=== PATIENT | male | born 1955 ===

== ENCOUNTER 2016-08-19 15:38 | Emergency (ER) ==
[2016-08-19] MEDS ORDERED: KETOROLAC 30 MG/ML VIAL (J1885) As Ordered ONE (16:23)
--- NOTE | 2016-08-19 17:30 | EDDOCDS ---
Physician Documentation [facility] Name: Donovan Perez Age: 61 yrs Sex: Male : 1955 Arrival Date: 08/19/2016 Time: 15:38 Bed PR Private MD: NO PRIMARY PHYSICIAN, . Disposition: 08/19/16 17:14 Discharged to Home/Self Care. Impression: Muscle spasm of back - right rhomboids. - Condition is Stable. - Discharge Instructions: Back Pain, Adult. - Prescriptions for Naprosyn 500 mg Oral Tablet - take 1 tablet by ORAL route 2 times per day take with food; 30 tablet. Robaxin 500 mg Oral Tablet - take 2 tablet by ORAL route every 6 hours As needed; 40 tablet. - Medication Reconciliation, Local Pharmacy Hours form. - Follow up: Private Physician; When: As needed; Reason: Recheck today's complaints, Continuance of care. Follow up: Emergency Department; When: As needed; Reason: Worsening of conditions. - Problem is an acute exacerbation. - Symptoms have improved. Historical: - Allergies: no known allergies; - Home Meds: 1. Proscar 5 mg Oral tab 1 tab once daily 2. trazodone 50 mg Oral tab 1 tab HS 3. losartan 25 mg oral tab 1 tab once daily 4. tamsulosin 0.4 mg oral cp24 1 cap once daily 5. atorvastatin 40 mg oral tab 1 tab once daily 6. Sertraline 150 mg daily 7. aspirin 81 mg Oral tab 1 tab once daily - PMHx: BPH; PTSD; HTN; Hypercholesterolemia; - PSHx: Cervical disc replacement; Tonsillectomy; Adenoidectomy; - Social history: Smoking status: Patient states former smoker of tobacco. No barriers to communication noted, The patient speaks fluent Cymro, Speaks appropriately for age. - Family history: Not pertinent. - : The pt / caregiver states he / she is not on anticoagulants. Home medication list is obtained from the patient. - Exposure Risk Screening:: None identified. Vital Signs: 08/19 15:40 BP 143 / 78; Pulse 88; Resp 18 S; Temp 97.7(O); Pulse Ox 95% on R/A; Weight 98.88 kg / gr2 217.99 lbs (R); Height 5 ft. 9 in. (175.26 cm) (R); Pain 8/10; 17:19 BP 154 / 83; Pulse 77; Resp 18; Temp 97.5(T); Pulse Ox 95% on R/A; Pain 0/10; nb2 15:40 Body Mass Index 32.19 (98.88 kg, 175.26 cm) gr2 MDM: 16:16 ketorolac 60 mg IM once ordered. ar2 16:16 Diazepam 5 mg IM once ordered. ar2 Administered Medications: 16:30 Drug: ketorolac 60 mg [ketorolac 30 mg/mL (1 mL) injection solution (2 mL)] Route: IM; jf3 Site: right gluteus; 16:32 Drug: Diazepam 5 mg [diazepam 5 mg/mL injection syringe (1 mL)] Route: IM; Site: left jf3 gluteus; Signatures: Winifred White,RN RN ck1 Chelsea Gutiérrez RN RN jo3 Finesse Sheikh PA-C PATavares ar2 Alirio Zaragoza RN jf3 MTDD
--- NOTE | 2016-08-19 17:30 | EDDOCDS ---
Nurse's Notes [facility] Name: Donovan Perez Age: 61 yrs Sex: Male : 1955 Arrival Date: 08/19/2016 Time: 15:38 Bed PR Private MD: NO PRIMARY PHYSICIAN, . Diagnosis: Muscle spasm of back-right rhomboids Presentation: 08/19 15:43 Presenting complaint: Patient states: Pt has chronic back pain and is up in [place] visiting jo3 family at [facility]. Pain is in right between shoulder blades. Acute neurological deficits are not present. Mechanism of Injury: No Mechanism of Injury. Adult Sepsis Screening: The patient does not have new or worsening altered mentation. Patient's respiratory rate is less than 22. Systolic blood pressure is greater than 100. Patient has a qSOFA score of 0- Negative Sepsis Screen. Suicide/Homicide risk assessment- the patient denies having any suicidal and/or homicidal ideations and does not present with any other emotional, behavioral or mental health complaints. Status: Patient is not a electric refrigerator servicer or dependent. Transition of care: patient was not received from another setting of care. 15:43 Acuity: ZANDRA Level 4 jo3 15:43 Method Of Arrival: Walkin/Carried/Asstd jo3 Triage Assessment: 15:49 General: Appears in no apparent distress, comfortable, Behavior is appropriate for age, jo3 cooperative, pleasant. Pain: Pain currently is 8 out of 10 on a pain scale. At worst was 10 out of 10 on a pain scale. HIV screening NA for this visit Offered previously. Neurological: Level of Consciousness is awake, alert, Oriented to person, place, time. Respiratory: Airway is patent Respiratory effort is even, unlabored. Derm: Skin is pink, warm & dry. Historical: - Allergies: no known allergies; - Home Meds: 1. Proscar 5 mg Oral tab 1 tab once daily 2. trazodone 50 mg Oral tab 1 tab HS 3. losartan 25 mg oral tab 1 tab once daily 4. tamsulosin 0.4 mg oral cp24 1 cap once daily 5. atorvastatin 40 mg oral tab 1 tab once daily 6. Sertraline 150 mg daily 7. aspirin 81 mg Oral tab 1 tab once daily - PMHx: BPH; PTSD; HTN; Hypercholesterolemia; - PSHx: Cervical disc replacement; Tonsillectomy; Adenoidectomy; - Social history: Smoking status: Patient states former smoker of tobacco. No barriers to communication noted, The patient speaks fluent Kenyan, Speaks appropriately for age. - Family history: Not pertinent. - : The pt / caregiver states he / she is not on anticoagulants. Home medication list is obtained from the patient. - Exposure Risk Screening:: None identified. Screenin:28 Screening information is obtained from the patient. Fall risk: No risks identified. ck1 Assistance ADL's: requires no assistance with activities of daily living. Abuse/DV Screen: The patient / caregiver reports he/she is: not in a situation that causes fear, pain or injury. Nutritional screening: No deficits noted. Advance Directives: Currently, there is no health care proxy. home support is adequate. Assessment: 17:29 General: Appears in no apparent distress, comfortable, Behavior is appropriate for age, ck1 cooperative. Pain: Location: back Pain currently is 1 out of 10 on a pain scale. Neurological: Level of Consciousness is awake, alert, obeys commands, Oriented to person, place, time. Derm: Skin is intact, is healthy with good turgor, Skin is pink, warm & dry. Musculoskeletal: Circulation, motion, and sensation intact Range of motion intact in all extremities. Vital Signs: 15:40 BP 143 / 78; Pulse 88; Resp 18 S; Temp 97.7(O); Pulse Ox 95% on R/A; Weight 98.88 kg gr2 (R); Height 5 ft. 9 in. (175.26 cm) (R); Pain 8/10; 17:19 BP 154 / 83; Pulse 77; Resp 18; Temp 97.5(T); Pulse Ox 95% on R/A; Pain 0/10; nb2 15:40 Body Mass Index 32.19 (98.88 kg, 175.26 cm) gr2 Vitals: 15:40 Log In Time: August 19, 2016 at 15:40. gr2 ED Course: 15:39 Patient visited by Brandon Mark. gr2 15:39 NO PRIMARY PHYSICIAN, . is Private Physician. gr2 15:39 Patient moved to Waiting gr2 15:42 Patient visited by Brandon Mark. gr2 15:42 Patient moved to Pre RCE gr2 15:45 Triage Initiated jo3 15:50 Patient visited by Chelsea Gutiérrez RN. jo3 15:50 Patient moved to Triage 2 jo3 16:05 Finesse Sheikh [facility] ar2 16:06 Carl Leiva MD is Attending Physician. ar2 16:06 Patient visited by Finesse Sheikh PA-C. ar2 16:33 Patient moved to PR1 / 25 jf3 16:39 Patient visited by Winifred White RN. ck1 17:19 Patient visited by Cathy Fam. nb2 17:29 The patient / caregiver is instructed regarding the plan of care and ED course. ck1 17:29 No IV's were initiated during this patient's visit. No procedures done that require ck1 assistance. Administered Medications: 16:30 Drug: ketorolac 60 mg [ketorolac 30 mg/mL (1 mL) injection solution (2 mL)] Route: IM; jf3 Site: right gluteus; 16:32 Drug: Diazepam 5 mg [diazepam 5 mg/mL injection syringe (1 mL)] Route: IM; Site: left jf3 gluteus; Order Results: There are currently no results for this order. Outcome: 17:14 Discharge ordered by Provider. ar2 17:28 Discharge Assessment: Patient awake, alert and oriented x 3. No cognitive and/or ck1 functional deficits noted. Patient verbalized understanding of disposition instructions. 17:28 Discharge Assessment: Patient awake, alert and oriented x 3. No cognitive and/or ck1 functional deficits noted. Patient verbalized understanding of disposition instructions. patient administered narcotics - yes. Pt provided with safe discharge. The following High Risk Discharge criteria are identified: None. Discharged to home ambulatory. Condition: stable. Discharge instructions given to patient, Instructed on discharge instructions, follow up and referral plans. medication usage, Demonstrated understanding of instructions, medications, Pt was receptive of discharge instructions/ teaching. Prescriptions given X 2. No special radiology studies were completed. Property :Personal belongings accompany Pt. 17:29 Patient left the ED. ck1 Signatures: Winifred White,RAFAL RN ck1 Chelsea Gutiérrez RN RN jo3 Finesse Sheikh PA-C PA-C ar2 Brandon Mark 2 Alirio Zaragoza RN RN jf3 Baart, Cathy nb2 MTDD
--- NOTE | 2016-08-21 18:30 | EDDOCDS ---
Nurse's Notes [facility] Name: Donovan Perez Age: 61 yrs Sex: Male : 1955 Arrival Date: 08/19/2016 Time: 15:38 Bed PR Private MD: NO PRIMARY PHYSICIAN, . Diagnosis: Muscle spasm of back-right rhomboids Presentation: 08/19 15:43 Presenting complaint: Patient states: Pt has chronic back pain and is up in [place] visiting jo3 family at [facility]. Pain is in right between shoulder blades. Acute neurological deficits are not present. Mechanism of Injury: No Mechanism of Injury. Adult Sepsis Screening: The patient does not have new or worsening altered mentation. Patient's respiratory rate is less than 22. Systolic blood pressure is greater than 100. Patient has a qSOFA score of 0- Negative Sepsis Screen. Suicide/Homicide risk assessment- the patient denies having any suicidal and/or homicidal ideations and does not present with any other emotional, behavioral or mental health complaints. Status: Patient is not a mechanical service technician or dependent. Transition of care: patient was not received from another setting of care. 15:43 Acuity: ZANDRA Level 4 jo3 15:43 Method Of Arrival: Walkin/Carried/Asstd jo3 Triage Assessment: 15:49 General: Appears in no apparent distress, comfortable, Behavior is appropriate for age, jo3 cooperative, pleasant. Pain: Pain currently is 8 out of 10 on a pain scale. At worst was 10 out of 10 on a pain scale. HIV screening NA for this visit Offered previously. Neurological: Level of Consciousness is awake, alert, Oriented to person, place, time. Respiratory: Airway is patent Respiratory effort is even, unlabored. Derm: Skin is pink, warm & dry. Historical: - Allergies: no known allergies; - Home Meds: 1. Proscar 5 mg Oral tab 1 tab once daily 2. trazodone 50 mg Oral tab 1 tab HS 3. losartan 25 mg oral tab 1 tab once daily 4. tamsulosin 0.4 mg oral cp24 1 cap once daily 5. atorvastatin 40 mg oral tab 1 tab once daily 6. Sertraline 150 mg daily 7. aspirin 81 mg Oral tab 1 tab once daily - PMHx: BPH; PTSD; HTN; Hypercholesterolemia; - PSHx: Cervical disc replacement; Tonsillectomy; Adenoidectomy; - Social history: Smoking status: Patient states former smoker of tobacco. No barriers to communication noted, The patient speaks fluent Swedish, Speaks appropriately for age. - Family history: Not pertinent. - : The pt / caregiver states he / she is not on anticoagulants. Home medication list is obtained from the patient. - Exposure Risk Screening:: None identified. Screenin:28 Screening information is obtained from the patient. Fall risk: No risks identified. ck1 Assistance ADL's: requires no assistance with activities of daily living. Abuse/DV Screen: The patient / caregiver reports he/she is: not in a situation that causes fear, pain or injury. Nutritional screening: No deficits noted. Advance Directives: Currently, there is no health care proxy. home support is adequate. Assessment: 17:29 General: Appears in no apparent distress, comfortable, Behavior is appropriate for age, ck1 cooperative. Pain: Location: back Pain currently is 1 out of 10 on a pain scale. Neurological: Level of Consciousness is awake, alert, obeys commands, Oriented to person, place, time. Derm: Skin is intact, is healthy with good turgor, Skin is pink, warm & dry. Musculoskeletal: Circulation, motion, and sensation intact Range of motion intact in all extremities. Vital Signs: 15:40 BP 143 / 78; Pulse 88; Resp 18 S; Temp 97.7(O); Pulse Ox 95% on R/A; Weight 98.88 kg gr2 (R); Height 5 ft. 9 in. (175.26 cm) (R); Pain 8/10; 17:19 BP 154 / 83; Pulse 77; Resp 18; Temp 97.5(T); Pulse Ox 95% on R/A; Pain 0/10; nb2 15:40 Body Mass Index 32.19 (98.88 kg, 175.26 cm) gr2 Vitals: 15:40 Log In Time: August 19, 2016 at 15:40. gr2 ED Course: 15:39 Patient visited by Brandon Mark. gr2 15:39 NO PRIMARY PHYSICIAN, . is Private Physician. gr2 15:39 Patient moved to Waiting gr2 15:42 Patient visited by Brandon Mark. gr2 15:42 Patient moved to Pre RCE gr2 15:45 Triage Initiated jo3 15:50 Patient visited by Chelsea Gutiérrez RN. jo3 15:50 Patient moved to Triage 2 jo3 16:05 Finesse Sheikh [facility]-C [facility]. ar2 16:06 Carl Leiva MD is Attending Physician. ar2 16:06 Patient visited by Finesse Sheikh PA-C. ar2 16:33 Patient moved to PR1 / 25 jf3 16:39 Patient visited by Winifred White,RAFAL. ck1 17:19 Patient visited by Cathy Fam. nb2 17:29 The patient / caregiver is instructed regarding the plan of care and ED course. ck1 17:29 No IV's were initiated during this patient's visit. No procedures done that require ck1 assistance. 02 10:50 T-Sheet-- Draft Copy was scanned into [employer] and attached to record. gb Administered Medications: 08/19 16:30 Drug: ketorolac 60 mg [ketorolac 30 mg/mL (1 mL) injection solution (2 mL)] Route: IM; jf3 Site: right gluteus; 16:32 Drug: Diazepam 5 mg [diazepam 5 mg/mL injection syringe (1 mL)] Route: IM; Site: left jf3 gluteus; Order Results: There are currently no results for this order. Outcome: 17:14 Discharge ordered by Provider. ar2 17:28 Discharge Assessment: Patient awake, alert and oriented x 3. No cognitive and/or ck1 functional deficits noted. Patient verbalized understanding of disposition instructions. 17:28 Discharge Assessment: Patient awake, alert and oriented x 3. No cognitive and/or ck1 functional deficits noted. Patient verbalized understanding of disposition instructions. patient administered narcotics - yes. Pt provided with safe discharge. The following High Risk Discharge criteria are identified: None. Discharged to home ambulatory. Condition: stable. Discharge instructions given to patient, Instructed on discharge instructions, follow up and referral plans. medication usage, Demonstrated understanding of instructions, medications, Pt was receptive of discharge instructions/ teaching. Prescriptions given X 2. No special radiology studies were completed. Property :Personal belongings accompany Pt. 17:29 Patient left the ED. ck1 Signatures: Torrie Guevara, Reg Reg Winifred White,RAFAL RN ck1 Chelsea Gutiérrez RN RN jo3 Finesse Sheikh PA-C PA-C ar2 Brandon Mark gr2 Alirio Zaragoza,RN RN jf3 Cathy Fam2 Chart Complete MTDD
--- NOTE | 2016-08-21 18:30 | EDDOCDS ---
Physician Documentation [facility] Name: Donovan Perez Age: 61 yrs Sex: Male : 1955 Arrival Date: 08/19/2016 Time: 15:38 Bed PR Private MD: NO PRIMARY PHYSICIAN, . Disposition: 08/19/16 17:14 Discharged to Home/Self Care. Impression: Muscle spasm of back - right rhomboids. - Condition is Stable. - Discharge Instructions: Back Pain, Adult. - Prescriptions for Naprosyn 500 mg Oral Tablet - take 1 tablet by ORAL route 2 times per day take with food; 30 tablet. Robaxin 500 mg Oral Tablet - take 2 tablet by ORAL route every 6 hours As needed; 40 tablet. - Medication Reconciliation, Local Pharmacy Hours form. - Follow up: Private Physician; When: As needed; Reason: Recheck today's complaints, Continuance of care. Follow up: Emergency Department; When: As needed; Reason: Worsening of conditions. - Problem is an acute exacerbation. - Symptoms have improved. Historical: - Allergies: no known allergies; - Home Meds: 1. Proscar 5 mg Oral tab 1 tab once daily 2. trazodone 50 mg Oral tab 1 tab HS 3. losartan 25 mg oral tab 1 tab once daily 4. tamsulosin 0.4 mg oral cp24 1 cap once daily 5. atorvastatin 40 mg oral tab 1 tab once daily 6. Sertraline 150 mg daily 7. aspirin 81 mg Oral tab 1 tab once daily - PMHx: BPH; PTSD; HTN; Hypercholesterolemia; - PSHx: Cervical disc replacement; Tonsillectomy; Adenoidectomy; - Social history: Smoking status: Patient states former smoker of tobacco. No barriers to communication noted, The patient speaks fluent Ugandan, Speaks appropriately for age. - Family history: Not pertinent. - : The pt / caregiver states he / she is not on anticoagulants. Home medication list is obtained from the patient. - Exposure Risk Screening:: None identified. Vital Signs: 08/19 15:40 BP 143 / 78; Pulse 88; Resp 18 S; Temp 97.7(O); Pulse Ox 95% on R/A; Weight 98.88 kg / gr2 217.99 lbs (R); Height 5 ft. 9 in. (175.26 cm) (R); Pain 8/10; 17:19 BP 154 / 83; Pulse 77; Resp 18; Temp 97.5(T); Pulse Ox 95% on R/A; Pain 0/10; nb2 15:40 Body Mass Index 32.19 (98.88 kg, 175.26 cm) gr2 MDM: 16:16 ketorolac 60 mg IM once ordered. ar2 16:16 Diazepam 5 mg IM once ordered. ar2 08/20 10:50 T-Sheet-- Draft Copy was scanned into [employer] and attached to record. gb Administered Medications: 08/19 16:30 Drug: ketorolac 60 mg [ketorolac 30 mg/mL (1 mL) injection solution (2 mL)] Route: IM; jf3 Site: right gluteus; 16:32 Drug: Diazepam 5 mg [diazepam 5 mg/mL injection syringe (1 mL)] Route: IM; Site: left jf3 gluteus; Signatures: Torrie Guevara, Reg Reg gb Winifred White RN RN ck1 Chelsea Gutiérrez RN RN jo3 Finesse Sheikh, PATavares PA-Irasema ar2 Alirio Zaragoza RN jf3 The chart was reviewed and I authenticate all verbal orders and agree with the evaluation and treatment provided.Attachments: 08/20 10:50 T-Sheet-- Draft Copy gb Chart Complete MTDD
== END 2016-08-19 17:27 | disposition home or self-care (01) ==
LOC: M ED 15:38
DX: M62.830 Muscle spasm of back (principal); N40.0 Benign prostatic hyperplasia without lower urinary tract symptoms; F43.10 Post-traumatic stress disorder, unspecified; I10 Essential (primary) hypertension; E78.00 Pure hypercholesterolemia, unspecified; Z87.891 Personal history of nicotine dependence; Z79.899 Other long term (current) drug therapy; Z79.82 Long term (current) use of aspirin
CPT/HCPCS: 96372; 99283; J1885; J3360